=== PATIENT | female | born 1975 | race Caucasian/White ===

== ENCOUNTER 2018-03-24 16:43 | Observation (INO) ==
--- NOTE | 2018-03-24 17:29 | Emergency Department Note ---
Disposition Clinical Impression: Colitis, C. difficile colitis Disposition: Admitted As Inpatient Condition: Fair Forms: ED Satisfaction Letter, Work/School Release Nausea/Vomiting/Diarrhea HPI - General Chief complaint: ED General Medical Stated complaint: diarrhea, fever, abscesses, chills, headache Time Seen by Provider: 03/24/18 16:50 Source: patient Limitations: no limitations Nursing Notes Reviewed: Yes Vital Signs Reviewed: Yes - History of Present Illness HPI Narrative: 43-year-old female percents for evaluation of nausea and diarrhea. Patient states that she recently was seen by her primary care physician who prescribed doxycycline for abscesses of her genital area. Patient states that this medication made her nauseated and she stopped taking it. She states that his morning she started having significant amount of diarrhea which she estimates 7 episodes of watery explosive stool. Patient states questionable fever. Patient states that whenever she gets an infection she gets very sick because she has had previous lumpectomy secondary to malignant melanoma many years ago. Patient denies any current complaints of cough, chest pain, or urinary symptoms. - Related Data Home Medications Medication Instructions Recorded Confirmed Baclofen [Lioresal] 10 mg PO TID 01/20/18 03/24/18 Calcium Carbonate/Vitamin D3 1 tab PO DAILY 01/20/18 03/24/18 [Calcium 500 + Vit D Caplet] Cholecalciferol (D-3) [Vitamin D] 2,000 unit PO DAILY 01/20/18 03/24/18 Desipramine [Norpramine] 25 mg PO HS 01/20/18 03/24/18 Diclofenac Sodium [Voltaren] 50 mg PO Q8HR 01/20/18 03/24/18 Hydrochlorothiazide [Microzide] 12.5 mg PO DAILY 01/20/18 03/24/18 Lisinopril [Zestril] 10 mg PO DAILY 01/20/18 03/24/18 Melatonin [Melatin] 9 mg PO HS 01/20/18 03/24/18 Metoprolol [Lopressor] 50 mg PO BID 01/20/18 03/24/18 Omeprazole [PriLOSEC] 40 mg PO DAILY 01/20/18 03/24/18 Ranitidine HCl [Zantac 75] 75 mg PO BID 01/20/18 03/24/18 Venlafaxine [Effexor] 37.5 mg PO BID 01/20/18 03/24/18 Allergies Allergy/AdvReac Type Severity Reaction Status Date / Time diphenhydramine AdvReac Palpitation Verified 01/20/18 05:33 [From Vanessa] francisco javier Review of Systems: Constitutional: See history of present illness HENT: [Negative for congestion.] Eyes: [Negative for discharge.] Respiratory: [Negative for shortness of breath.] Cardiovascular: [Negative for chest pain.] Gastrointestinal: See history of present illness Endocrine: [Negative for excessive thirst,urination] Genitourinary: [Negative for dysuria and frequency.] Musculoskeletal: [Negative for myalgias and arthralgias.] Skin: [Negative for rash.] Neurological: [Negative for dizziness, localized weakness and headaches.] Psychiatric/Behavioral: [Negative for nervous/anxious.] All other systems reviewed and are negative. Past Medical History - Past Medical History Attestation: Yes The following information was validated with the patient. Source: patient Medical history: Reports: cancer, DVT, GERD, hypertension, other Surgical history: Reports: cholecystectomy Psychiatric history: Reports: depression [employer] history: Reports: bilateral tubal ligation - Social History Smoking Status: Current every day smoker Smokeless Tobacco Status: No Alcohol use: Reports: rarely Drug use: Reports: none Physical Exam Constitutional: Patient is [alert], healthy and mildly anxious and cooperative. . The patient appears , [nontoxic, and does not appear ill]. HENT: Head: Normocephalic and atraumatic. Right Ear: External ear normal. Left Ear: External ear normal. Nose: Nose normal. Mouth/Throat: Oropharynx is clear and mucous membranes show [good hydration.] Eyes: Conjunctivae and EOM are normal. Pupils are equal, round, and reactive to light. Right eye exhibits [no] discharge. Left eye exhibits [no] discharge. Neck: Trachea is midline, normal range of motion and [phonation normal]. Neck supple. Cardiovascular: [Regular rhythm], S1 normal, S2 normal, normal heart sounds and intact distal pulses. Exam reveals no gallop and no friction rub. No murmur heard. [Capillary refill is brisk.] [Peripheral pulses are 2+] Pulmonary/Chest: Effort [normal] No stridor. [No] tachypnea. [No] respiratory distress. There are [no] decreased breath sounds. [There no wheezes, no rhonchi , or rales.] Abdominal: Soft. Bowel sounds are hyperactive. There exhibits [no] distension and [no] mass. There is no hepatosplenomegaly. There is [no tenderness], [no] CVA tenderness. There is [no rigidity, no rebound, no guarding]. Musculoskeletal: Normal range of motion of uninvolved extremities. There exhibits [no edema]. [ ] Neurological: Patient is alert. Patient displays no atrophy and no tremor. No cranial nerve deficit and exhibits normal muscle tone. Coordination normal grossly. Skin: Skin is warm and dry. No erythema. No rash noted. She has small tiny erythematous follicles around a shaven genital area consistent with folliculitis , she has no significant abscesses or lymphadenopathy Psychiatric: Patient has a [normal mood and affect.] Course Course Narrative: Patient shows evidence of C. difficile colitis without evidence of acute sepsis with a non-elevated lactic acid. She was discussed with Dr. Díaz who agrees with admission for IV fluids and oral vancomycin Vital Signs Temperature 100.6 F H 03/24/18 17:01 Pulse Rate 136 03/24/18 17:01 Respiratory Rate 20 03/24/18 17:01 Blood Pressure 134/82 03/24/18 17:01 O2 Sat by Pulse Oximetry 100 03/24/18 17:01 Temperature 100.6 F H 03/24/18 17:01 Pulse Rate 118 03/24/18 19:00 Respiratory Rate 20 03/24/18 17:01 Blood Pressure 118/77 03/24/18 19:00 O2 Sat by Pulse Oximetry 100 03/24/18 19:00 Oxygen Delivery Oxygen Delivery Room Air Nausea/Vomiting/Diarrhea - Lab Data Lab results reviewed: Yes I reviewed the patient's lab results. Result diagrams: 03/24/18 17:48 03/24/18 17:48 Lab Results 03/24/18 03/24/18 03/24/18 Range/Units 17:48 17:48 18:50 WBC 31.5 H* (4.3-11.1) K/mcL RBC 3.53 L (3.82-4.97) M/mcL Hgb 10.4 L (11.5-15.4) g/dL Hct 30.9 L (35.3-44.9) % MCV 87.5 (83.0-100.0) fL MCH 29.5 (28.0-33.3) pg MCHC 33.7 (31.6-35.5) g/dL RDW 19.9 H (11.5-14.5) % Plt Count 215 (140-400) K/mcL MPV 10.9 (9.4-12.4) fL Immature Gran % 2.2 (0-4) % Seg Neutrophils % 83.2 % Lymphocytes % 4.6 % Monocytes % 9.8 % Eosinophils % 0.0 % Basophils % 0.2 % Neutrophils # 26.2 H (1.6-8.9) K/mcL Lymphocytes # 1.5 (0.6-4.6) K/mcL Monocytes # 3.1 H (0.0-1.3) K/mcL Eosinophils # 0.0 (0.0-0.6) K/mcL Basophils # 0.1 (0.0-0.2) K/mcL Platelet Estimate Normal (Normal) Sodium 133 L (136-145) mEq/L Potassium 3.4 L (3.5-5.1) mEq/L Chloride 106 (98-107) mEq/L Carbon Dioxide 19 L (23-29) mEq/L BUN 7 (6-20) mg/dL Creatinine 0.74 (0.60-1.20) mg/dL Est GFR ( Amer) > 60 (> 60) Est GFR (Non-Af Amer) > 60 (> 60) BUN/Creatinine Ratio 9 (6-26) Glucose 103 (70-105) mg/dL Calculated Osmolality 274 L (280-300) Lactic Acid 0.8 (0.5-2.2) mmol/L Calcium 9.1 (8.6-10.3) mg/dL Total Bilirubin 0.7 (0.3-1.0) mg/dL AST 89 H (13-39) Units/L ALT 166 H (7-52) Units/L Alkaline Phosphatase 128 H (34-104) Units/L Serum Total Protein 6.9 (6.4-8.9) g/dL Albumin 3.6 (3.5-5.7) g/dL Globulin 3.3 (2.4-3.5) g/dL Albumin/Globulin Ratio 1.1 (1.1-2.2)
[2018-03-24] MEDS ORDERED: Ondansetron 4 MG/2 ML VIAL IVP ONE (17:32)
[2018-03-24] MEDS ORDERED: 0.9 % Sodium Chloride 1,000 ML IVC ONE (17:32)
[2018-03-24 17:57] LABS: Basophils # 0.1 K/mcL (0.0-0.2); Basophils % 0.2 %; Hematocrit 30.9 % (35.3-44.9); Hemoglobin 10.4 g/dL (11.5-15.4); Immature Granulocytes % 2.2 % (0-4); Lymphocytes % 4.6 %; Mean Corpuscular HGB Conc 33.7 g/dL (31.6-35.5); Mean Corpuscular Hemoglobin 29.5 pg (28.0-33.3); Mean Corpuscular Volume 87.5 fL (83.0-100.0); Mean Platelet Volume 10.9 fL (9.4-12.4); Monocytes # 3.1 K/mcL (0.0-1.3); Monocytes % 9.8 %; Neutrophils # 26.2 K/mcL (1.6-8.9); Platelet Count 215 K/mcL (140-400); Red Blood Count 3.53 M/mcL (3.82-4.97); Red Cell Distribution Width 19.9 % (11.5-14.5); Segmented Neutrophils % 83.2 %
[2018-03-24 18:00] LABS: Lymphocytes # 1.5 K/mcL (0.6-4.6)
[2018-03-24 18:11] LABS: Alanine Aminotransferase 166 Units/L (7-52); Albumin 3.6 g/dL (3.5-5.7); Albumin/Globulin Ratio 1.1 (1.1-2.2); Alkaline Phosphatase 128 Units/L (34-104); Aspartate Amino Transferase 89 Units/L (13-39); BUN/Creatinine Ratio 9 (6-26); Bilirubin,Total 0.7 mg/dL (0.3-1.0); Blood Urea Nitrogen 7 mg/dL (6-20); Calcium 9.1 mg/dL (8.6-10.3); Carbon Dioxide 19 mEq/L (23-29); Chloride 106 mEq/L (98-107); Globulin 3.3 g/dL (2.4-3.5); Glucose 103 mg/dL (70-105); Osmolality,Calculated 274 (280-300); Platelet Estimate Normal (Normal); Potassium 3.4 mEq/L (3.5-5.1); Sodium 133 mEq/L (136-145); Total Protein 6.9 g/dL (6.4-8.9); eGFR For Non-African Americans > 60 (> 60)
[2018-03-24] MEDS ORDERED: Ondansetron 4 MG/2 ML VIAL IVP PRN (20:05)
[2018-03-24] MEDS ORDERED: 0.9 % Sodium Chloride 1,000 ML IVC SCH (20:05)
[2018-03-24] MEDS ORDERED: Melatonin 3 MG TABLET PO SCH (21:00)
[2018-03-24] MEDS: Baclofen 10 MG TABLET PO SCH (21:42)
[2018-03-24] MEDS ORDERED: *HR* Enoxaparin 40 MG/0.4 ML SYRINGE SQ ONE (23:07)
[2018-03-24] MEDS ORDERED: Acetaminophen 325 MG TABLET PO PRN (23:12)
[2018-03-24] MEDS ORDERED: Mag Hydrox/Al Hydrox/Simeth 30 ML UDC PO PRN (23:14)
[2018-03-24] MEDS: 0.9 % Sodium Chloride w KCl 20 MEQ/1,000 ML MLS IVC SCH (23:56)
[2018-03-24] MEDS: *HR* OxyCODONE/APAP 5/325 TABLET PO PRN (23:57)
[2018-03-25 05:54] LABS: Basophils # 0.1 K/mcL (0.0-0.2); Basophils % 0.2 %; Eosinophils # 0.1 K/mcL (0.0-0.6); Eosinophils % 0.3 %; Hematocrit 25.8 % (35.3-44.9); Hemoglobin 8.4 g/dL (11.5-15.4); Immature Granulocytes % 3.1 % (0-4); Lymphocytes # 2.6 K/mcL (0.6-4.6); Lymphocytes % 10.3 %; Mean Corpuscular HGB Conc 32.6 g/dL (31.6-35.5); Mean Corpuscular Hemoglobin 28.8 pg (28.0-33.3); Mean Corpuscular Volume 88.4 fL (83.0-100.0); Monocytes # 2.3 K/mcL (0.0-1.3); Monocytes % 9.2 %; Neutrophils # 19.4 K/mcL (1.6-8.9); Platelet Count 162 K/mcL (140-400); Red Blood Count 2.92 M/mcL (3.82-4.97); Red Cell Distribution Width 19.9 % (11.5-14.5); Segmented Neutrophils % 76.9 %
[2018-03-25 06:08] LABS: Alanine Aminotransferase 118 Units/L (7-52); Albumin 2.8 g/dL (3.5-5.7); Albumin/Globulin Ratio 1.1 (1.1-2.2); Alkaline Phosphatase 125 Units/L (34-104); Aspartate Amino Transferase 57 Units/L (13-39); BUN/Creatinine Ratio 10 (6-26); Bilirubin,Total 0.5 mg/dL (0.3-1.0); Blood Urea Nitrogen 6 mg/dL (6-20); Calcium 7.9 mg/dL (8.6-10.3); Carbon Dioxide 17 mEq/L (23-29); Chloride 110 mEq/L (98-107); Globulin 2.5 g/dL (2.4-3.5); Glucose 132 mg/dL (70-105); Osmolality,Calculated 275 (280-300); Potassium 3.5 mEq/L (3.5-5.1); Sodium 133 mEq/L (136-145); Total Protein 5.3 g/dL (6.4-8.9); eGFR For Non-African Americans > 60 (> 60)
[2018-03-25 06:16] LABS: Anisocytosis 1+ (Not Present); Macrocytosis Present (Not Present); Platelet Estimate Normal (Normal)
[2018-03-25 06:18] LABS: Microcytosis Present (Not Present)
[2018-03-25] MEDS: *HR* OxyCODONE/APAP 5/325 TABLET PO PRN ×2 (06:22→12:04)
[2018-03-25] MEDS ORDERED: Famotidine 20 MG TABLET PO SCH (07:30)
[2018-03-25] MEDS: Baclofen 10 MG TABLET PO SCH ×2 (08:04→15:41)
[2018-03-25] MEDS: 0.9 % Sodium Chloride w KCl 20 MEQ/1,000 ML MLS IVC SCH (08:04)
[2018-03-25] MEDS ORDERED: *HR* Enoxaparin 40 MG/0.4 ML SYRINGE SQ SCH (09:00)
[2018-03-25] MEDS ORDERED: Cholecalciferol (D-3) 1,000 UNIT TABLET PO SCH (09:00)
[2018-03-25] MEDS ORDERED: Vancomycin Oral Soln 125 MG/2.5 ML UDC PO SCH (09:00)
[2018-03-25] MEDS ORDERED: Calcium 500 + Vit D PO SCH (09:00)
--- NOTE | 2018-03-25 10:14 | Internal Med History&Physical ---
Date of Encounter: 03/25/18 Time of Encounter: 10:12 Assessment and Plan (1) C. difficile colitis Current visit: Yes Status: Acute continue PO vancomycin. (2) Abscess of vagina Current visit: Yes Status: Acute continue atb, f/u with Dr Nunez as scheduled. Internal Medicine - H&P: HPI Admitted From: Emergency Dept Plans for Post Hospital Care: Home History of present illness: Ms. Parr is a 43 year old female admitted for observation after arriving to the emergency room with nausea and diarrhea. Patient started off with abscess in groin and genital area a few weeks ago. Has had long history of these. Was started on doxycycline by primary care doctor. States she does not tolerate antibiotics very well. Started feeling sick after taking this. Has been running low-grade fever. States she had malignant melanoma several years ago and had lymph nodes removed back in 2009 and does not rebound from infection very well since this. Denies chest pain, shortness of breath or vomiting. Patient was able to eat small breakfast this morning. Has had several episodes of diarrhea through the night and this morning. No vomiting Past Med Surg Social Fam HX - Past Medical History Medical history: cancer, DVT, GERD, hypertension, other Additional medical history: Increased heart rate. Stage 3 metastatic melanoma rt groin. Psychiatric history: depression - Past Surgical History Surgical History: cholecystectomy Additional surgical history: Right knee surgery, lymph node removal from Right Groin, Tubal, - Social History Smoking Status: Current every day smoker Smokeless Tobacco Status: No Alcohol use: rarely Drug use: none - Family History Mother Living Status: Still Living Hx Family Cardiac Disorders: Yes (heart disease) Hx Family Cancer: Yes (colon cancer) Father Living Status: Hx Family Cancer: Yes (Pancreatic cancer) Internal Medicine - H&P: Meds Baclofen [Lioresal] 10 mg PO TID 01/20/18 [History] Calcium Carbonate/Vitamin D3 [Calcium 500 + Vit D Caplet] 1 tab PO DAILY [History] Cholecalciferol (D-3) [Vitamin D] 2,000 unit PO DAILY 01/20/18 [History] Desipramine [Norpramine] 25 mg PO HS 01/20/18 [History] Diclofenac Sodium [Voltaren] 50 mg PO Q8HR 01/20/18 [History] Hydrochlorothiazide [Microzide] 12.5 mg PO DAILY 01/20/18 [History] Lisinopril [Zestril] 10 mg PO DAILY 01/20/18 [History] Melatonin [Melatin] 9 mg PO HS 01/20/18 [History] Metoprolol [Lopressor] 50 mg PO BID 01/20/18 [History] Omeprazole [PriLOSEC] 40 mg PO DAILY 01/20/18 [History] Ranitidine HCl [Zantac 75] 75 mg PO BID 01/20/18 [History] Venlafaxine [Effexor] 37.5 mg PO BID 01/20/18 [History] 3 Allergy/AdvReac Type Severity Reaction Status Date / Time diphenhydramine AdvReac Palpitation Verified 01/20/18 05:33 [From Benadjasel] s All Systems PM: A 10-system review of systems was performed and is negative for pertinent findings except as documented above in the HPI. - Constitutional Constitutional: as per HPI, no chills, no fever(s), no night sweats - EENT Eyes: no change in vision, no discharge, no pain, no photophobia Ears: no ear discharge, no ear pain, no tinnitus Nose, mouth and throat: no dysphagia, no nasal discharge, no neck pain, no sore throat - Cardiovascular Cardiovascular ROS IM: no chest pain, no diaphoresis, no dyspnea, no lightheadedness, no palpitations, no syncope - Respiratory Respiratory: no cough, no dyspnea, no wheezing, no excessive phlegm production - Gastrointestinal Gastrointestinal: no abdominal pain, no diarrhea, no hematemesis, no hematochezia, no melena, no nausea, no vomiting - Genitourinary Genitourinary: no change in urinary stream, no dysuria, no flank pain, no hematuria - Musculoskeletal Musculoskeletal ROS IM: no numbness, no tingling - Integumentary Integumentary IM: no rash, no unusual bruising - Neurological Neurological ROS: no confusion, no convulsions, no focal weakness, no numbness, no tingling, no tremor(s) - Hematologic/Lymphatic Hematologic/Lymphatic: no easy bruising - Constitutional Vitals: Temp Pulse Resp BP Pulse Ox 99.3 F 90 16 96/65 97 03/25/18 07:16 03/25/18 07:16 03/25/18 07:16 03/25/18 07:16 03/25/18 07:16 General appearance: Present: cooperative, A&O X 3, pleasant, no acute distress, answers questions appropriately - Head Head exam: Present: atraumatic, normocephalic - Eye Eye exam: Present: PERRL, conjuntiva pink, sclera anicteric Pupils: Present: PERRL - Neck Neck exam general surgery: Present: supple, trachea midline. Absent: lymphadenopathy - Respiratory Respiratory exam: Present: CTAB. Absent: accessory muscle use, rales, rhonchi, wheezes - Cardiovascular Cardiovascular exam: Present: RRR, +S1, +S2. Absent: diastolic murmur, gallop, rubs, systolic murmur - GI/Abdominal GI/Abdominal exam: Present: normal bowel sounds, soft, no peritoneal signs. Absent: distended, tenderness - Extremities Exam Extremities exam: Present: warm, radial pulses palpable and symmetrical. Absent : calf tenderness, cyanotic, pedal edema - Neurological Exam Neurological exam: Present: CN II-XII intact, oriented X3, no focal deficits. Absent: pronater drift, facial droop, speech deficit - Skin Skin exam: Present: dry, intact Additional comments: Original abscesses present left labia and groin area, fluctuant Internal Med - H&P Results - Labs CBC & Chem 7: 03/25/18 05:35 03/25/18 05:35 Labs: Short CBC 03/25/18 Range/Units 05:35 WBC 25.2 H (4.3-11.1) K/mcL Hgb 8.4 L D (11.5-15.4) g/dL Hct 25.8 L (35.3-44.9) % Plt Count 162 (140-400) K/mcL Neutrophils # 19.4 H (1.6-8.9) K/mcL BMP 03/25/18 05:35 Sodium 133 L Potassium 3.5 Chloride 110 H Carbon Dioxide 17 L BUN 6 Creatinine 0.60 Glucose 132 H Calcium 7.9 L Liver Function 03/25/18 Range/Units 05:35 Total Bilirubin 0.5 (0.3-1.0) mg/dL AST 57 H (13-39) Units/L ALT 118 H (7-52) Units/L Alkaline Phosphatase 125 H (34-104) Units/L Albumin 2.8 L (3.5-5.7) g/dL - VTE Reasons for not Prescribing Prophylaxis: Treatment not Indicated - Low risk for VTE
[2018-03-25 10:41] LABS: Adenovirus F 40/41 PCR Not detected (Not detect); Astrovirus PCR Not detected (Not detect); C.difficile Toxin A/B by PCR Not detected (Not detect); Campylobacter by PCR Not detected (Not detect); Cryptosporidium by PCR Not detected (Not detect); Cyclospora cayetanensis PCR Not detected (Not detect); E. coli O157 by PCR Not detected (Not detect); Entamoeba histolytica PCR Not detected (Not detect); Enteroaggregative E.coli(EAEC) Not detected (Not detect); Enteropathogenic E.coli(EPEC) Not detected (Not detect); Enterotoxigenic E.coli (ETEC) Not detected (Not detect); Giardia lamblia PCR Not detected (Not detect); Norovirus GI/GII PCR Not detected (Not detect); Plesiomonas shigelloides PCR Not detected (Not detect); Rotavirus A PCR Not detected (Not detect); Salmonella PCR Not detected (Not detect); Sapovirus PCR Not detected (Not detect); Shig/EnteroinvasiveE coli EIEC Not detected (Not detect); Shigalike tox-prod E coli STEC Not detected (Not detect); Vibrio PCR Not detected (Not detect); Vibrio cholerae PCR Not detected (Not detect); Yersinia enterocolitica PCR Not detected (Not detect)
--- NOTE | 2018-03-25 12:07 | Discharge Summary ---
- NOTES TO OUTPATIENT PROVIDER Notes to Outpatient Provider: To have follow-up with Dr. Hernandez in 2 weeks. Antibiotics for 1 week but may need to be renewed if still an issue at follow- up. Date of Encounter: 03/25/18 Time of Encounter: 12:05 - Discharge Diagnosis (1) Abscess of vagina Priority: Primary Status: Acute Comments: I discussed with pharmacy. Because she is intolerance of doxycycline and because this might be MRSA, will treat with Bactrim DS. If she tolerates this, that is fine. If she is not any better, she may be needing Zyvox. Starting dose will be 600 mg twice a day by mouth. This is very expensive and not necessarily covered by insurance. We will try to arrange Bactrim and follow. Dr. Messer in one week or less. (2) MRSA (methicillin resistant staph aureus) culture positive Priority: Secondary Status: Acute Comments: This is by history only and not documented well, here. However, apparently was positive back in January of this year per patient history. (3) HTN (hypertension) Priority: Secondary Status: Chronic Comments: Controlled, now. Will continue on her home medication regimen. Qualifiers: Hypertension type: essential hypertension Qualified Code(s): I10 - Essential (primary) hypertension (4) Gastroenteritis Priority: Secondary Status: Acute Comments: Negative stool survey, no hematochezia or melena and seems to have resolved since yesterday. Patient understands that if recurs or if her fever worsens she should return to the emergency room. Dehydration seems to have improved. (5) Hypomagnesemia Priority: Secondary Status: Acute Comments: We will give her a dose of IV magnesium sulfate and then discharge to follow up. Hospital course: Ms. Parr is a 43 year old female with history of low-grade fever and chills for about 3 days. A day before admission she developed profuse, watery, and then brown diarrhea. She denies melena or hematochezia or abdominal pain. She was a little bit nauseated but did not have emesis. She had an abscess on her abdomen but this resolved and only one that developed the last couple of days in her vulvar area on the left is worse and more sore. She relates a history of pneumonia and UTI with sepsis in January 2018. She was discharged on Levaquin and Augmentin. She was told that she had MRSA during that admission. She is not sure of the exact location. She has had multiple "cysts." In times past, she has had these biopsied and they have not shown MRSA. She is to see Dr. Nunez in a couple of weeks about the cysts and follow-up is scheduled with him. She is feeling much better now and wants to go home, as soon as possible. Past medical history significant for migraines but she has not had a migraine in over a year. She also has hypertension that is controlled with lisinopril. She also has a history of rapid heart rate that is treated with metoprolol. She has GERD which is treated with both PPI and H2 blockade. She has a history of melanoma at the right groin area which was removed by excision and no recurrences known. She lives with her fiance who works nights. 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 She occasionally will have a beer but not regular alcohol intake. She denies any street drugs. She smokes one pack per day for 20+ years. Family history is significant for pancreatic and colon cancer in her mother and father. Brothers and sisters do not have significant health problems. I have reviewed her care with other providers including nursing. Patient has no complaint of chest discomfort, dyspnea, orthopnea, breathing problems, palpitations, nausea or vomiting, constipation or diarrhea, other changes in bowel habits, heartburn, difficulty with urination, kidney problems or kidney stones, fevers chills or sweats, rash or itching, seizures, headache or lightheadedness, heat or cold intolerance, blood problems or anemia, or other new complaints, except as mentioned above. Review of systems is otherwise negative. Discharge discussed with: patient - Time Spent with Patient Total time spent providing and/or coordinating discharge services: - Discharge Medications Home Medications: Baclofen [Lioresal] 10 mg PO TID 01/20/18 [History] Calcium Carbonate/Vitamin D3 [Calcium 500 + Vit D Caplet] 1 tab PO DAILY [History] Cholecalciferol (D-3) [Vitamin D] 2,000 unit PO DAILY 01/20/18 [History] Desipramine [Norpramine] 25 mg PO HS 01/20/18 [History] Diclofenac Sodium [Voltaren] 50 mg PO Q8HR 01/20/18 [History] Hydrochlorothiazide [Microzide] 12.5 mg PO DAILY 01/20/18 [History] Lisinopril [Zestril] 10 mg PO DAILY 01/20/18 [History] Melatonin [Melatin] 9 mg PO HS 01/20/18 [History] Metoprolol [Lopressor] 50 mg PO BID 01/20/18 [History] Omeprazole [PriLOSEC] 40 mg PO DAILY 01/20/18 [History] Ranitidine HCl [Zantac 75] 75 mg PO BID 01/20/18 [History] Venlafaxine [Effexor] 37.5 mg PO BID 01/20/18 [History] Sulfamethoxazole/Trimeth DS [Bactrim DS] 1 each PO BID #14 tablet 03/25/18 [Rx] Allergies/Adverse Reactions: 3 Allergy/AdvReac Type Severity Reaction Status Date / Time diphenhydramine AdvReac Palpitation Verified 01/20/18 05:33 [[facility] s Date of admission: 03/24/18 20:18 Primary care physician: Dayo Messer MD Discharging clinician: Keron Díaz Anticipated date of discharge: 03/25/18 - Constitutional Vitals: Temp Pulse Resp BP Pulse Ox 99.3 F 90 16 96/65 97 03/25/18 07:16 03/25/18 07:16 03/25/18 07:16 03/25/18 07:16 03/25/18 07:16 General appearance: Present: pleasant, answers questions appropriately Exam: Examination: (Except as mentioned above): General: In no apparent distress, alert and oriented 3. Right side of her head is dyed red hair. Head: Atraumatic and normocephalic. Eyes: Extraocular muscles are intact, pupils equal round and reactive to light and accommodation. Sclerae anicteric. Ears: External ears are normal to inspection and hearing is grossly normal. Nose: Patent without lesion noted. Mouth: No intraoral lesions seen. Dentition is unremarkable. Neck: Supple with trachea midline. There is no thyromegaly or adenopathy and carotids are 2+ without bruit heard. Respiratory: No use of accessory muscles. Lungs are clear throughout. Normal airflow. Cardiovascular: Regular rate and rhythm without murmur appreciated. Abdomen: Bowel sounds are normal. No hepatosplenomegaly masses or tenderness. Obese and therefore difficult to palpate deeply. Extremities: No cyanosis clubbing or edema. Neurological: A and O 3. Cranial nerves II through XII are intact. No focal deficits and no abnormal movements or postures. Skin: Warm and non-diaphoretic , has right vulvar scarring consistent with where she had a history of melanoma removed. Well-healed and no signs of infection. Has a 1 cm's which is tender just lateral to the left vulva. There is no fluctuance. No surrounding erythema. No inguinal lymphadenopathy. Note is made of an erythematous area at the low left abdomen which is consistent with prior furuncle. It is not currently swollen or tender. Breasts, pelvic and rectal: Not examined. - Patient Status Disposition: Home, Self-Care Condition: Fair Overall status at discharge: patient is progressing back to baseline - Discharge Instructions Follow Up With: Dayo Messer MD [Primary Care Provider] - - Diet and Activity Activity: increase activity as tolerated Diet: advance to your usual diet - VTE Reasons for not Prescribing Prophylaxis: Treatment not Indicated - Low risk for VTE
[2018-03-25 13:35] VITALS: BP 94/62
[2018-03-25] MEDS ORDERED: Aminoglycoside Consult 1 EACH MC ONE (15:44)
== END 2018-03-25 15:45 | disposition home or self-care (01) ==
LOC: EMEROOGRE 16:43 → INPGRE 16:43